=== PATIENT | female | born 2005 | race Caucasian/White ===

== ENCOUNTER 2024-09-06 08:29 | Emergency (ER) | payer OTHER ==
[~2024-09-06] VITALS: Ht 154.9 cm; Wt 46.8 kg
[2024-09-06 08:45] VITALS: BP 133/55; PULSE 92; RESP 18; TEMP 36.7; O2SAT 99
[2024-09-06] MEDS ORDERED: ONDANSETRON 4MG ODT PO ONE (09:30)
[2024-09-06 10:23] LABS: HEMATOCRIT. 39.7 % (36.0-48.0); HEMOGLOBIN. 12.7 g/dL (12.0-16.0); MEAN CORPUSCULAR HGB CONC 32.1 g/dL (31.0-37.0); MEAN CORPUSCULAR VOLUME 84.1 fL (81.0-99.0); PLATELET 335 x1000/uL (130-400); RED BLOOD CELL COUNT 4.73 mill/uL (4.2-5.4); RED CELL DISTRIBUTION WIDTH 18.5 % (11.6-14.6); WHITE BLOOD COUNT 11.8 x1000/uL (4.5-11.0)
[2024-09-06 10:31] LABS: HCG SCREEN NEGATIVE
[2024-09-06 10:38] LABS: CHLORIDE 103 mEq/L (98-107); SODIUM 138 mEq/L (136-145)
[2024-09-06 10:39] LABS: CALCIUM 10.6 mg/dL (8.7-10.4); CARBON DIOXIDE 20 mEq/L (21-32); DIFFERENTIAL COMMENT 1
[2024-09-06 10:44] LABS: CREATININE 0.9 mg/dL (0.6-1.0); GLUCOSE 160 mg/dL (70-105); UREA NITROGEN BLOOD 17 mg/dL (9-23)
[2024-09-06 10:46] LABS: ALANINE AMINOTRANSFERASE 19 IU/L (10-49); ALBUMIN 5.4 g/dL (3.2-4.8); ASPARTATE AMINOTRANSFERASE 35 IU/L (<34)
[2024-09-06 10:47] LABS: BILIRUBIN TOTAL 0.9 mg/dL (0.1-1.0); PROTEIN TOTAL 8.6 g/dL (6.0-8.3)
[2024-09-06 11:04] LABS: POTASSIUM 2.8 mEq/L (3.5-5.1)
[2024-09-06] MEDS ORDERED: MAGNESIUM 2 G PREMIX 50 ML IV ONE (11:30)
[2024-09-06] MEDS ORDERED: KCL 20MEQ/100ML PREMIX 100 ML IV SCH (11:30)
[2024-09-06] MEDS ORDERED: POTASSIUM CHLORIDE 20MEQ/PACKET PO ONE (11:30)
[2024-09-06 11:58] LABS: PLATELET ESTIMATE NORMAL
[2024-09-06 11:59] LABS: ANISOCYTOSIS 1+
== END 2024-09-06 12:37 | disposition left against medical advice (07) ==
LOC: ER 08:35
DX: R11.2 Nausea with vomiting, unspecified (principal); R19.7 Diarrhea, unspecified; R05.9 Cough, unspecified; F12.10 Cannabis abuse, uncomplicated
CPT/HCPCS: 36415; 80053; 84703; 85025; 99283